=== PATIENT | male | born 1985 | race Caucasian/White ===

== ENCOUNTER 2019-04-04 19:13 | Emergency (ER) | payer BC, OTHER ==
[~2019-04-04] VITALS: Ht 188 cm; Wt 104.3 kg
[2019-04-04] MEDS ORDERED: XANAX1 MG PO (19:46)
[2019-04-04] MEDS ORDERED: ADDERALL 30 MG30 MG PO (19:47)
[2019-04-04] MEDS ORDERED: NORCO 7.5-3251 EACH PO (21:28)
[2019-04-04] MEDS ORDERED: IBUPROFEN 800800 M1 PO (21:28)
[2019-04-04] MEDS ORDERED: BACTRIM DS TAB1 EACH PO (21:28)
[2019-04-04] MEDS ORDERED: SENNA-DOCUSATE1 EAC1 PO (21:28)
[2019-04-04] MEDS ORDERED: ZOFRAN ODT4 MG PO (21:28)
[2019-04-04 21:45] VITALS: BP 146/85
== END 2019-04-04 21:47 | disposition home or self-care (01) ==
LOC: ER 19:13
DX: L02.31 Cutaneous abscess of buttock (principal); Z88.0 Allergy status to penicillin

== ENCOUNTER 2019-04-06 19:18 | Emergency (ER) | payer BC, OTHER ==
[~2019-04-06] VITALS: Ht 188 cm; Wt 104.3 kg
[~2019-04-06 19:18] MED LIST: ADDERALL 30 MG30 MG PO; BACTRIM DS TAB1 EACH PO; IBUPROFEN 800800 M1 PO; NORCO 7.5-3251 EACH PO; SENNA-DOCUSATE1 EAC1 PO; XANAX1 MG PO; ZOFRAN ODT4 MG PO
[2019-04-06 19:19] VITALS: BP 158/105
== END 2019-04-06 21:00 | disposition home or self-care (01) ==
LOC: ER 19:18
DX: K61.1 Rectal abscess (principal); F90.9 Attention-deficit hyperactivity disorder, unspecified type; F17.210 Nicotine dependence, cigarettes, uncomplicated; Z88.0 Allergy status to penicillin